=== PATIENT | female | born 1935 | race Caucasian/White ===

== ENCOUNTER 2020-03-20 18:00 | Inpatient (IN) | payer MEDICARE ==
[~2020-03-20] VITALS: Ht 152.4 cm; Wt 58.5 kg
[2020-03-20] VITALS: BP 114/68
[2020-03-21 04:00] VITALS: BP 141/70
[2020-03-21 04:39] VITALS: BP 108/60; BMI 25.2
[2020-03-21 06:42] LABS: BASOPHILS 0.3 % (0-2); EOSINOPHILS 4.7 % (0-7); HEMATOCRIT 31.1 % (36.0-48.0); HEMOGLOBIN 9.7 g/dL (12-16); IMMATURE GRANULOCYTES 0.3 % (0-5); LYMPHOCYTES 9.7 % (15-50); MCH 29.1 pg (26.0-34.0); MCHC 31.2 g/dL (31.0-37.0); MCV 93.4 fL (80.0-100.0); MONOCYTES 11.3 % (2-11); NEUTROPHILS 73.7 % (40-80); PLATELET COUNT 302 10x3/uL (130-400); RBC 3.33 10x6/uL (4.00-5.40); RDW 13.4 % (11.5-14.5); WBC 11.8 10x3/uL (4.8-10.8)
[2020-03-21 06:56] LABS: ANION GAP 12.5 mmol/L (8-16); CALCIUM 9.2 mg/dL (8.5-10.1); CARBON DIOXIDE 24.1 mmol/L (21.0-32.0); CREATININE - SERUM 1.2 mg/dL (0.6-1.3); POTASSIUM - SERUM 3.6 mmol/L (3.5-5.1)
--- NOTE | 2020-03-21 08:19 | HP ---
PATIENT: RUBINA RICHARDSON MEDICAL RECORD: [id number] ACCOUNT: [id number] LOCATION:D.MS [facility] : 35 ADMISSION DATE: 03/20/20 PCP: MUKUND BYRD MD HISTORY AND PHYSICAL EXAMINATION CHIEF COMPLAINT: Weak. HISTORY OF PRESENT ILLNESS: This is a very healthy 84-year-old female whom I have followed since 2013. She presented to my office today with gradual onset of weakness that really got worse in the last 5 days. She denies any fever. She states she may have had a chill. She had some nausea today, but no vomiting, a little diarrhea last week. No muscle aches or pains. She states she is "not very hungry." No loss of taste. She reportedly has lost about 10 pounds over the last few weeks. She has no urinary symptoms now; however, she did come to the office last week and left the UA, which did show some blood, but urine culture showed no growth. In my office today, her blood pressure was 88/42 with a heart rate of 108 and she was very weak. Her white count was 15,000 and creatinine 1.47. Urinalysis was unable to be obtained today. She only was able to give a few drops. She is admitted for weakness and dehydration. PAST MEDICAL HISTORY: Hypothyroidism and depression. PAST SURGICAL HISTORY: None. HOME MEDICATIONS: Levothyroxine 50 mcg once a day and sertraline 100 mg once a day. ALLERGIES: PENICILLIN AND SULFA. HABITS: Former smoker. No alcohol or drug use. SOCIAL HISTORY: She is a counselor and still works. She is . FAMILY HISTORY: Father at 59 of an [place]. Mother is . She due to complications of heart surgery. REVIEW OF SYSTEMS: GENERAL: She reports about a 10 pound weight loss in the last few weeks. HEENT: No particular sinus or allergy problems. RESPIRATORY: No history of emphysema, asthma, or pneumonia. CARDIAC: No history of heart trouble. GASTROINTESTINAL: No diarrhea, constipation, or heartburn. GENITOURINARY: She had hematuria last week and urine culture was negative. Unable to give urine today. MUSCULOSKELETAL: No significant joint aches or pains. NEUROLOGIC: No migraines or seizures. PSYCHIATRIC: She has some depression on sertraline. PHYSICAL EXAMINATION: VITAL SIGNS: My office blood pressure 88/42, heart rate 108, O2 sat 91% on room air. She was afebrile. GENERAL: She appeared very weak, which is very unusual for her. SKIN: Warm and dry. HEENT: TMs are clear. Nose and throat unremarkable. HISTORY AND PHYSICAL [id number] RUBINA RICHARDSON NECK: Supple. No JVD or bruit. HEART: Regular rate and rhythm without murmur. LUNGS: Clear. ABDOMEN: Soft, flat, nontender. EXTREMITIES: No edema. LABORATORY DATA: CBC with a white count of 15,450, hemoglobin 11.5, hematocrit 35.3. Basic metabolic panel: Sodium 135, potassium 3.8, chloride 98, CO2 of 23.7, BUN 20, creatinine 1.47, calcium is 9.4, and albumin was 2.8. Liver functions were all normal. TSH in my office was 0.07, free T4 1.25. ASSESSMENT: 1. Generalized weakness. 2. Acute renal insufficiency with a creatinine of 1.47. 3. Dehydration unable to urinate. 4. Tachycardic with low blood pressure. PLAN: We will admit, give IV fluids, subq Lovenox, IV Pepcid, Zofran if needed. Repeat labs in the a.m. and make further recommendations at that time. TRANSINT:[id number] Voice Confirmation ID: [id number] DOCUMENT ID: [id number] MUKUND BYRD MD at 0819 CC: [id number] DICTATION DATE: 03/20/202206 DIRECTOR INDUSTRIAL NURSING: 03/21/20 0146 ADM IN [place] [id number] [place] [address]
[2020-03-21 08:59] LABS: % SATURATION 15 % (15-55); IRON 26 ug/dl (35-150); TOTAL IRON BIND CAPACITY 165 ug/dl (260-445); UNSAT IRON BIND CAPACITY 139 ug/dl (150-375)
--- NOTE | 2020-03-21 09:01 | NUR ---
SHE IS ALERT, TALKING. SHE WALKED TO THE BATHROOM. HER FAMILY IS AT THE BEDSIDE. THE CALL LIGHT IS WITHIN REACH. SHE STATES SHE 'FEELS BETTER".
[2020-03-21 10:59] VITALS: BP 132/68
[2020-03-21 11:59] VITALS: Ht 152.4 cm; Wt 58.5 kg
[2020-03-21 13:16] VITALS: BP 131/57
[2020-03-21 16:51] LABS: BILIRUBIN NEGATIVE (NEGATIVE); GLUCOSE NEGATIVE (NEGATIVE); KETONE NEGATIVE (NEGATIVE); NITRITE NEGATIVE (NEGATIVE); UROBILINOGEN NORMAL (NORMAL)
[2020-03-21 16:55] LABS: BACTERIA MODERATE /hpf (NEGATIVE); EPITHELIAL CELLS 0-5 /hpf (0-5); WHITE CELLS - URINE >50 /hpf (NEGATIVE)
[2020-03-21 18:02] VITALS: BP 137/60
[2020-03-21 20:00] VITALS: BP 141/57
[2020-03-22] VITALS: BP 138/70
--- NOTE | 2020-03-22 02:59 | NUR ---
ASSESSED AT THE BEGINNING OF THE SHIFT. PT IS ALEART AND ORIENTED, ABLE TO VERBALIZE NEEDS. SHE IS UP TO THE BATHROOM WITH MINIMAL ASSIST AND WE HAVE HER ON ROOM AIR. HER HAS REMAINED IN THE ROOM HELPING HER WITH VARIOUS THINGS. SHE IS APPEARS TO BE ASLEEP AT THIS TIME AND NO DISTRESS NOTED.
[2020-03-22 04:00] VITALS: BP 117/52
[2020-03-22 05:28] LABS: BASOPHILS 0.1 % (0-2); EOSINOPHILS 3.8 % (0-7); HEMATOCRIT 29.4 % (36.0-48.0); HEMOGLOBIN 9.1 g/dL (12-16); IMMATURE GRANULOCYTES 0.4 % (0-5); LYMPHOCYTES 11.1 % (15-50); MCH 29.2 pg (26.0-34.0); MCV 94.2 fL (80.0-100.0); MEAN PLATELET VOLUME 9.2 fL (7.4-10.4); MONOCYTES 8.8 % (2-11); NEUTROPHILS 75.8 % (40-80); PLATELET COUNT 304 10x3/uL (130-400); RBC 3.12 10x6/uL (4.00-5.40); RDW 13.5 % (11.5-14.5); WBC 13.7 10x3/uL (4.8-10.8)
[2020-03-22 05:47] LABS: ANION GAP 13.3 mmol/L (8-16); CALCIUM 8.7 mg/dL (8.5-10.1); CARBON DIOXIDE 22.4 mmol/L (21.0-32.0); CREATININE - SERUM 1.2 mg/dL (0.6-1.3); POTASSIUM - SERUM 3.7 mmol/L (3.5-5.1)
[2020-03-22 09:46] VITALS: BP 119/44
--- NOTE | 2020-03-22 10:42 | NUR ---
PT LAYING IN BED, A&O X4. DENIES PAIN. PIV IN LEFT WRIST, PATENT, NO REDNESS OR SWELLING. O2 VIA RA. PT ABLE TO AMBULATE WITH ASSIST. EDUCATED PT ON NEED FOR STOOL SAMPLE, PROVIDED [place] HAT. EDUCATED PT ON CL FOR NEEDS. BED LOW, RAILS X2. CL IN REACH. WILL CONTINUE TO MONITOR.
[2020-03-22 12:15] VITALS: BP 136/60
[2020-03-22 16:33] VITALS: BP 126/66
[2020-03-22 20:00] VITALS: BP 128/72
[2020-03-23 00:18] VITALS: BP 138/64
[2020-03-23 04:00] VITALS: BP 143/62
[2020-03-23 09:42] VITALS: BP 149/62
--- NOTE | 2020-03-23 11:07 | NUR ---
PT ALERT X 4. BREATH SOUNDS CLEAR BILAT, IV TO RIGHT WRIST, PATENT, DRESSING CDI. PT REPORTING FEELING BETTER TODAY. AT BEDSIDE. BED LOW, CALL LIGHT IN REACH. NO OTHER NEEDS AT THIS TIME.
[2020-03-23 12:52] VITALS: BP 129/67
[2020-03-23 20:00] VITALS: BP 150/76
[2020-03-23 20:51] LABS: BILIRUBIN NEGATIVE (NEGATIVE); GLUCOSE NEGATIVE (NEGATIVE); KETONE NEGATIVE (NEGATIVE); NITRITE NEGATIVE (NEGATIVE); UROBILINOGEN NORMAL (NORMAL)
[2020-03-23 20:55] LABS: BACTERIA MODERATE /hpf (NEGATIVE); EPITHELIAL CELLS 0-5 /hpf (0-5); WHITE CELLS - URINE 25-50 /hpf (NEGATIVE)
--- NOTE | 2020-03-23 21:10 | NUR ---
WATCHING TV QUEITLY WITH NO COMPLIANTS VOICED; RESP EVEN AND UNLABORED.. IV TO RIGHT WRIST WITHOUT REDNESS OR EDEMA NOTED. CL IN REACH
[2020-03-24] VITALS: BP 158/70
[2020-03-24 04:00] VITALS: BP 147/74
[2020-03-24 07:20] LABS: BASOPHILS 0.2 % (0-2); HEMATOCRIT 27.6 % (36.0-48.0); HEMOGLOBIN 8.7 g/dL (12-16); IMMATURE GRANULOCYTES 0.6 % (0-5); LYMPHOCYTES 14.1 % (15-50); MCH 29.2 pg (26.0-34.0); MCHC 31.5 g/dL (31.0-37.0); MCV 92.6 fL (80.0-100.0); MEAN PLATELET VOLUME 9.4 fL (7.4-10.4); MONOCYTES 10.1 % (2-11); PLATELET COUNT 286 10x3/uL (130-400); RBC 2.98 10x6/uL (4.00-5.40); RDW 13.4 % (11.5-14.5); WBC 12.6 10x3/uL (4.8-10.8)
[2020-03-24 07:29] LABS: ANION GAP 10.4 mmol/L (8-16); CALCIUM 8.5 mg/dL (8.5-10.1); CARBON DIOXIDE 24.5 mmol/L (21.0-32.0)
[2020-03-24 07:32] LABS: POTASSIUM - SERUM 2.9 mmol/L (3.5-5.1)
[2020-03-24 09:07] VITALS: BP 106/74
[2020-03-24 13:48] VITALS: BP 167/73
--- NOTE | 2020-03-24 15:45 | NUR ---
PT ALERT X 4. NOT FEELING WELL TODAY YESTERDAY. POTASSIUM TREATED PER ORDERS. AT BEDSIDE. WILL CONTINUE TO MONITOR.
[2020-03-24 17:03] VITALS: BP 126/70
[2020-03-24 20:00] VITALS: BP 118/72
[2020-03-25] VITALS: BP 121/68
[2020-03-25 07:28] LABS: BASOPHILS 0.2 % (0-2); EOSINOPHILS 4.1 % (0-7); HEMOGLOBIN 9.1 g/dL (12-16); IMMATURE GRANULOCYTES 0.7 % (0-5); LYMPHOCYTES 11.1 % (15-50); MCHC 31.4 g/dL (31.0-37.0); MCV 92.4 fL (80.0-100.0); MEAN PLATELET VOLUME 9.3 fL (7.4-10.4); MONOCYTES 10.3 % (2-11); NEUTROPHILS 73.6 % (40-80); PLATELET COUNT 313 10x3/uL (130-400); RBC 3.14 10x6/uL (4.00-5.40); RDW 13.7 % (11.5-14.5); WBC 14.5 10x3/uL (4.8-10.8)
[2020-03-25 07:38] LABS: CALCIUM 8.6 mg/dL (8.5-10.1); CARBON DIOXIDE 25.1 mmol/L (21.0-32.0); POTASSIUM - SERUM 4.1 mmol/L (3.5-5.1)
--- NOTE | 2020-03-25 08:05 | NUR ---
SHE IS ALERT, TALKING. DENIES ANY PAIN. HER IS AT THE BEDSIDE. THE CALL LIGHT IS WTIHIN REACH.
[2020-03-25 08:41] VITALS: BP 142/77
--- NOTE | 2020-03-25 12:15 | MORECARE ---
CASE MANAGEMENT DISCHARGE SUMMARY PATIENT: RUBINA RICHARDSON UNIT: [id number] ADM DATE: 03/22/20 AGE: 84 : 35 SEX: F ROOM/BED: D.2204 AUTHOR: KAY BARRIENTOS PHYSICIAN: REFERRING PHYSICIAN: MUKUND BYRD MD DATE OF SERVICE: 03/25/20 Discharge Plan Patient Name: RUBINA RICHARDSON [facility] [facility] 1935 Planned Disposition: Home Anticipated Discharge Date: Discharge Date: Expected LOS: Initial Reviewer: [email or web address] Initial Review Date: 03/20/2020 Generated: 03/25/20 1:14 pm DCPIA - Discharge Planning Initial Assessment Updated by [id number]: Kisha Rhodes on 03/25/20 12:14 pm * Is the patient Alert and Oriented? Yes * How many steps to enter\exit or inside your home? * PCP [facility] * Pharmacy [facility] * Preadmission Environment Home with Family * ADLs Independent * Equipment None * List name and contact numbers for known caregivers / representatives who currently or will assist patient after discharge: INDERJIT (SPOUSE) * Verbal permission to speak to the caregivers and representatives has been obtained from the patient. Yes * Community resources currently utilized None * Additional services required to return to the preadmission environment? No * Can the patient safely return to the preadmission environment? Yes * Has this patient been hospitalized within the prior 30 days at any hospital? No Patient Name: RUBINA RICHARDSON Page [id number] at 1215 All edits/amendments must be made on the electronic document DICTATION DATE: 03/25/20 1215 EMERGENCY MEDICINE SPECIALIST: SAM 03/25/20 1215 RPT#: [id number] DC DATE: STATUS: ADM IN [facility] [place] [address] END OF REPORT
--- NOTE | 2020-03-25 12:22 | MORECARE ---
CASE MANAGEMENT DISCHARGE SUMMARY PATIENT: RUBINA RICHARDSON UNIT: [id number] ADM DATE: 03/22/20 AGE: 84 : 35 SEX: F ROOM/BED: D.2204 AUTHOR: FLOYD,DOC PHYSICIAN: REFERRING PHYSICIAN: MUKUND BYRD MD DATE OF SERVICE: 03/25/20 Discharge Plan Patient Name: RUBINA RICHARDSON Facility: [facility]:[place] : 1935 Planned Disposition: Home Anticipated Discharge Date: Discharge Date: Expected LOS: Initial Reviewer: [email or web address] Initial Review Date: 03/20/2020 Generated: 03/25/20 1:21 pm Comments DCP- Discharge Planning Updated by [email or web address]: Kisha Rhodes on 03/25/20 11:[address] Patient Name: RUBINA RICHARDSON Admission Status: Elective Accout number: [id number] Admission Date: 03-22-2020 : 1935 Admission Diagnosis: Attending: MUKUND BYRD Current LOS: 3 Anticipated DC Date: Planned Disposition: Home Primary Insurance: MEDICARE A & B Discharge Planning Comments: CM met with patient to complete initial dc planning assessment. CM educated patient on the CM role and verbal consent given by patient to complete assessment. Patient lives at home with her spouse where she is independent with her care. At discharge patient plans to return home and feels this is a safe discharge. CM discussed availability of home health, rehab services, and medical equipment. Sh did not think that she needed anything and if she did she would call Dr Byrd at his office. Patient denied known discharge needs at this time. Her is at bedside and will be her services delivery driver home. IMM served and explained. CM will continue to follow and will assist as needed with dc plans/needs. Electrical Construction Project Manager: Kisha Rhodes DCPIA - Discharge Planning Initial Assessment Updated by [email or web address]: Kisha Rhodes on 03/25/20 12:14 pm * Is the patient Alert and Oriented? Yes * How many steps to enter\exit or inside your home? * PCP ROCHELLE * Pharm[facility] * Preadmission Environment Home with Family * ADLs Independent * Equipment None * List name and contact numbers for known caregivers / representatives who currently or will assist patient after discharge: INDERJIT (SPOUSE) * Verbal permission to speak to the caregivers and representatives has been obtained from the patient. Yes * Community resources currently utilized None * Additional services required to return to the preadmission environment? No * Can the patient safely return to the preadmission environment? Yes * Has this patient been hospitalized within the prior 30 days at any hospital? No Coverage Notice Reviewer: [email or web address] Alphonso Rhodes Notice Issued Date-Time: 03/25/2020 12:00 Notice Type: IM Discharge Notice Notice Delivered To: Patient Relationship to Patient: Boat Joiner Helper Name: Delivery Method: HAND - Hand Delivered Chrissy Days: Prior Verbal Notification: Recipient Understood Notice: Yes Recipient Signature: Yes Med Rec Note Co-signed by Attending: Coverage Notice Comment: IMM explained, signed, copy given and original placed in medical record. Last DP export: 03/25/20 11:15 am Patient Name: RUBINA RICHARDSON Page [phone] at 1222 All edits/amendments must be made on the electronic document DICTATION DATE: 03/25/20 1221 ENVIRONMENTAL STUDIES PROFESSOR: SAM 03/25/20 1221 RPT#: [id number] DC DATE: STATUS: ADM IN [facility] [address] [place] [address] END OF REPORT
--- NOTE | 2020-03-25 14:27 | NUR ---
IV REMOVED, PAPERWORK GONE OVER WITH, PATIENT AND HER . TAKEN OUT TO THE ER VIA WHEELCHAIR.
--- NOTE | 2020-03-26 08:59 | MORECARE ---
CASE MANAGEMENT DISCHARGE SUMMARY PATIENT: RUBINA RICHARDSON UNIT: [id number] ADM DATE: 03/22/20 AGE: 84 : 35 SEX: F ROOM/BED: D.2204 AUTHOR: FLOYD,DOC PHYSICIAN: REFERRING PHYSICIAN: MUKUND BYRD MD DATE OF SERVICE: 03/26/20 Discharge Plan Patient Name: RUBINA RICHARDSON Facility: [facility]:[place] : 1935 Planned Disposition: Home Anticipated Discharge Date: Discharge Date: 03/25/2020 Expected LOS: Initial Reviewer: [email or web address] Initial Review Date: 03/20/2020 Generated: 03/26/20 9:58 am Comments DCP- Discharge Planning Updated by [id number]: Kisha Rhodes on 03/25/20 11:[address] Patient Name: RUBINA RICHARDSON Admission Status: Elective Accout number: [id number] Admission Date: 03-22-2020 : 1935 Admission Diagnosis: Attending: MUKUND BYRD Current LOS: 3 Anticipated DC Date: Planned Disposition: Home Primary Insurance: MEDICARE A & B Discharge Planning Comments: CM met with patient to complete initial dc planning assessment. CM educated patient on the CM role and verbal consent given by patient to complete assessment. Patient lives at home with her spouse where she is independent with her care. At discharge patient plans to return home and feels this is a safe discharge. CM discussed availability of home health, rehab services, and medical equipment. Sh did not think that she needed anything and if she did she would call Dr Byrd at his office. Patient denied known discharge needs at this time. Her is at bedside and will be her stage driver home. IMM served and explained. CM will continue to follow and will assist as needed with dc plans/needs. Button Tufting Machine Operator: Kisha Rhodes DCPIA - Discharge Planning Initial Assessment Updated by [id number]: Kisha Rhodes on 03/25/20 12:14 pm * Is the patient Alert and Oriented? Yes * How many steps to enter\exit or inside your home? * PCP [facility]HELLE * Pharm[facility] * Preadmission Environment Home with Family * ADLs Independent * Equipment None * List name and contact numbers for known caregivers / representatives who currently or will assist patient after discharge: INDERJIT (SPOUSE) * Verbal permission to speak to the caregivers and representatives has been obtained from the patient. Yes * Community resources currently utilized None * Additional services required to return to the preadmission environment? No * Can the patient safely return to the preadmission environment? Yes * Has this patient been hospitalized within the prior 30 days at any hospital? No Coverage Notice Reviewer: [id number] Alphonso Rhodes Notice Issued Date-Time: 03/25/2020 12:00 Notice Type: IM Discharge Notice Notice Delivered To: Patient Relationship to Patient: Hot Roll Inspector Name: Delivery Method: HAND - Hand Delivered Chrissy Days: Prior Verbal Notification: Recipient Understood Notice: Yes Recipient Signature: Yes Med Rec Note Co-signed by Attending: Coverage Notice Comment: IMM explained, signed, copy given and original placed in medical record. Last DP export: 03/25/20 11:22 am Patient Name: RUBINA RICHARDSON Page [id number] at 0859 All edits/amendments must be made on the electronic document DICTATION DATE: 03/26/2059 PRODUCTION ENGINEER: SMA 03/26/2059 RPT#: [id number] DC DATE:03/25/20 STATUS: DIS IN [facility] [address] [place] [address] END OF REPORT
== END 2020-03-25 14:28 | disposition home or self-care (01) | DRG 683 ==
LOC: D.MS 18:00 → OBSVTIME 18:07 → D.MS 19:30
PROVIDERS: Family Medicine; ADMIT Family Medicine; ATTEND Family Medicine
DX: N17.9 Acute kidney failure, unspecified (principal); N39.0 Urinary tract infection, site not specified; E86.0 Dehydration; D64.9 Anemia, unspecified; R00.0 Tachycardia, unspecified; R53.1 Weakness

== ENCOUNTER 2020-03-29 13:40 | Inpatient (IN) | payer MEDICARE ==
[~2020-03-29] VITALS: Ht 152.4 cm; Wt 58.6 kg
[2020-03-29] MEDS ORDERED: ZOLOFT100 MG PO (14:17)
[2020-03-29] MEDS ORDERED: SYNTHROID50 MCG PO (14:17)
[2020-03-29 14:23] VITALS: BP 168/78; Ht 152.4 cm; Wt 58.6 kg
[2020-03-29 16:20] LABS: BILIRUBIN NEGATIVE (NEGATIVE); GLUCOSE NEGATIVE (NEGATIVE); KETONE MODERATE mg/dL (NEGATIVE); NITRITE NEGATIVE (NEGATIVE); UROBILINOGEN NORMAL (NORMAL)
[2020-03-29 16:28] LABS: EPITHELIAL CELLS 0-5 /hpf (0-5); RED CELLS - URINE >50 /hpf (0-5); WHITE CELLS - URINE 25-50 /hpf (NEGATIVE)
[2020-03-29 16:40] LABS: BACTERIA MODERATE /hpf (NEGATIVE)
[2020-03-29 16:57] VITALS: BP 150/85
[2020-03-29 18:46] LABS: BASOPHILS 0.1 % (0-2); EOSINOPHILS 0.8 % (0-7); HEMATOCRIT 31.7 % (36.0-48.0); IMMATURE GRANULOCYTES 0.4 % (0-5); LYMPHOCYTES 7.8 % (15-50); MCH 29.4 pg (26.0-34.0); MCHC 31.5 g/dL (31.0-37.0); MCV 93.2 fL (80.0-100.0); MONOCYTES 8.8 % (2-11); NEUTROPHILS 82.1 % (40-80); PLATELET COUNT 392 10x3/uL (130-400); RDW 13.8 % (11.5-14.5); WBC 19.9 10x3/uL (4.8-10.8)
[2020-03-29 19:00] LABS: ALBUMIN 2.3 g/dL (3.4-5.0); ANION GAP 13.2 mmol/L (8-16); BILIRUBIN - TOTAL 0.47 mg/dL (0.2-1.3); CALCIUM 8.5 mg/dL (8.5-10.1); CARBON DIOXIDE 25.5 mmol/L (21.0-32.0); CREATININE - SERUM 1.1 mg/dL (0.6-1.3); POTASSIUM - SERUM 3.7 mmol/L (3.5-5.1); PROTEIN - SERUM 7.3 g/dL (6.4-8.2)
--- NOTE | 2020-03-29 21:30 | NUR ---
LYING QUEITLY WITH NO DISTRESSS NOTED. CT RESULTS CALLED TO DR BYRD. ORDERS RECEIVED. IV NS STARTED TO LEFT WRIST AT 75CC/HR. TOLERATED WELL CL IN REACH
[2020-03-29 22:06] VITALS: BP 147/72
[2020-03-30] VITALS: BP 144/71
[2020-03-30 04:00] VITALS: BP 162/76
--- NOTE | 2020-03-30 04:39 | NUR ---
I have reviewed this patient and I concur with the Shift Assessment completed by the Licensed Practical Nurse today this shift.
--- NOTE | 2020-03-30 07:20 | NUR ---
A&O RESTING IN BED WITH EYES OPEN. C/O PAIN, 05/02. GAVE TYLENOL FOR PAIN PER MD ORDERS. C/O NAUSEA, GAVE ZOFRAN PER MD ORDERS. UP WITH MINIMAL ASSIST. IV TO LEFT WRIST, NS INFUSING @ 75ML/HR. SITE PATENT WITHOUT REDNESS OR SWELLING. ASSISTED PATIENT UP TO RESTROOM, SLIGHTLY BLOODY URINE. DENIES ANY NEEDS AT THIS TIME. CALL LIGHT IN REACH. WILL CONTINUE TO MONITOR.
[2020-03-30 07:31] LABS: BASOPHILS 0.2 % (0-2); EOSINOPHILS 1.4 % (0-7); HEMATOCRIT 31.3 % (36.0-48.0); HEMOGLOBIN 9.7 g/dL (12-16); IMMATURE GRANULOCYTES 0.5 % (0-5); LYMPHOCYTES 6.2 % (15-50); MCH 29.1 pg (26.0-34.0); MEAN PLATELET VOLUME 8.9 fL (7.4-10.4); MONOCYTES 9.3 % (2-11); NEUTROPHILS 82.4 % (40-80); PLATELET COUNT 387 10x3/uL (130-400); RBC 3.33 10x6/uL (4.00-5.40); RDW 13.9 % (11.5-14.5); WBC 17.5 10x3/uL (4.8-10.8)
[2020-03-30 07:41] LABS: ANION GAP 13.6 mmol/L (8-16); CALCIUM 8.4 mg/dL (8.5-10.1); CARBON DIOXIDE 27.1 mmol/L (21.0-32.0); POTASSIUM - SERUM 3.7 mmol/L (3.5-5.1)
--- NOTE | 2020-03-30 08:00 | NUR ---
PATIENT IS LYING IN BED,WITHOUT DISTRESS.FAMILY AT BEDSIDE.
[2020-03-30 09:49] VITALS: BP 170/84
--- NOTE | 2020-03-30 10:17 | HP ---
PATIENT: RUBINA RICHARDSON MEDICAL RECORD: [id number] ACCOUNT: [id number] LOCATION:D.MS [address] : [birth year] ADMISSION DATE: 03/29/20 PCP: MUKUND BYRD MD HISTORY AND PHYSICAL EXAMINATION ADMISSION HISTORY AND PHYSICAL DATE OF ADMISSION: 03/29/2020. CHIEF COMPLAINT: Abdominal pain and hematuria. HISTORY OF PRESENT ILLNESS: This 84-year-old female who I have followed for the last 6 years, came in today feeling increased weakness with lower abdominal pain. She was just admitted into the hospital with acute renal insufficiency, dehydration, and low blood pressure and weakness. She was discharged on 03/25/2020. She states she felt good for the next 2 days and started feeling weak and bad and having increased pain. No fever or chills. She is directly admitted to [facility] for further workup. PAST MEDICAL HISTORY: Hypothyroidism, depression. PAST SURGICAL HISTORY: None. HOME MEDICATIONS: Levothyroxine 50 mcg once a day, sertraline 100 mg once a day. HABITS: Former smoker, no alcohol or drugs. 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 She is . FAMILY HISTORY: Father at 59 of an [place]. Mother due to complications of heart surgery. REVIEW OF SYSTEMS: GENERAL: She states she has had about a 10-pound weight loss over the last several weeks. HEENT: No significant sinus or allergy problems. RESPIRATORY: No history of emphysema, asthma or pneumonia. CARDIAC: No history of heart trouble. GASTROINTESTINAL: No diarrhea, constipation or heartburn. GENITOURINARY: Hematuria in the last week or two. Urine culture was negative. MUSCULOSKELETAL: No significant joint aches and pains. NEUROLOGIC: No migraines or seizures. PSYCHIATRIC: She has had some depression and is on sertraline. PHYSICAL EXAMINATION: VITAL SIGNS: Temperature 98.8, pulse 93, respirations 12, blood pressure 147/72, O2 sat 92%. GENERAL: Generally, she appears weak and tired. HEENT: Unremarkable. NECK: Supple. HEART: Regular rate and rhythm. LUNGS: Clear. ABDOMEN: With no bloating. There is some generalized tenderness in the lower HISTORY AND PHYSICAL [id number] RUBINA RICHARDSON abdomen. No guarding, no rebound, no mass. PELVIC: Not done. EXTREMITIES: No edema. LABORATORY DATA: CBC with a white count of 19,900, hemoglobin 10, hematocrit 31, MCV is normal. Sodium 130, potassium 3.7, chloride 95, CO2 25.5, BUN 15, creatinine 1.1, glucose 85, calcium 8.5. Liver enzymes are normal. Urine is brown and turbid, 3+ protein, moderate ketones, 2+ blood, 2+ leukocyte esterase, greater than 50 red blood cells, 25-50 white blood cells, 0-5 epithelial cells, moderate bacteria. CT abdomen and pelvis shows irregular enhancing structure in the mid to inferior aspect of the left kidney, measuring up to 6.7 cm in transverse diameter. The left renal parenchyma demonstrates delayed and diminished enhancement in comparison to the right. This structure may be due to a renal abscess, renal or transitional cell cancer, or focus of infarction. There is aortic and pelvic atherosclerosis. ASSESSMENT: 1. Abdominal pain. 2. Renal mass. 3. Urinary tract infection. PLAN: We have no urology coverage here. We will make sure that if Dr. Banks has come over some weeks, if not I have already talked to the patient and her and if beds were available at [facility], we will transfer over there for urologic consultation for her renal mass. We will give her IV fluids. We will start antibiotics for what appears to be a urinary tract infection. TRANSINT:[id number] Voice Confirmation ID: [id number] DOCUMENT ID: [id number] MUKUND BYRD MD at 1017 CC: [id number] DICTATION DATE: 03/30/20 0033 HOSE INSPECTOR: 03/30/20 0511 ADM IN [place] [id number] [place] [address]
[2020-03-30 13:58] VITALS: BP 126/63
[2020-03-30 18:04] VITALS: BP 140/71
--- NOTE | 2020-03-30 19:15 | NUR ---
ALERT AND ORIENTED SITTING UP IN BED WHEN ENTERING THE ROOM. AT BEDSIDE. PATIENT DENIES PAIN AT THIS TIME. ASSESSMENT COMPLETE. LEFT WRIST IV THAT IS PATENT AND IFUSING NS PER ORDER. PATIENT HAS CALL LIGHT AND VERBALIZES UNDERSTANDING OF USING WHEN IN NEED OF ASSISTANCE. DENIES FURTHER NEEDS AT THIS TIME. CALL LIGHT CLOSE. CPOC.
--- NOTE | 2020-03-30 20:30 | NUR ---
ANSWERED PATIENT CALL LIGHT. ASSISTED TO BATHROOM. PATIENT REQUIRED MINIMAL STAND BY ASSIST. URINE REMAINS RUST COLORED. RETURNED TO BED SAFELY. DENIES FUTHER NEEDS AT THIS TIME. CALL LIGHT CLOSE. REMAINS AT BEDSIDE. CPOC.
[2020-03-30 20:58] VITALS: BP 161/76
[2020-03-31 00:44] VITALS: BP 154/82
[2020-03-31 06:49] LABS: BASOPHILS 0.2 % (0-2); EOSINOPHILS 2.2 % (0-7); HEMATOCRIT 28.8 % (36.0-48.0); IMMATURE GRANULOCYTES 0.3 % (0-5); MCH 29.4 pg (26.0-34.0); MCHC 31.3 g/dL (31.0-37.0); MCV 94.1 fL (80.0-100.0); MEAN PLATELET VOLUME 8.9 fL (7.4-10.4); MONOCYTES 9.9 % (2-11); NEUTROPHILS 79.4 % (40-80); PLATELET COUNT 369 10x3/uL (130-400); RBC 3.06 10x6/uL (4.00-5.40); RDW 13.8 % (11.5-14.5); WBC 16.7 10x3/uL (4.8-10.8)
[2020-03-31 07:02] LABS: ANION GAP 8.7 mmol/L (8-16); CALCIUM 8.2 mg/dL (8.5-10.1); CARBON DIOXIDE 26.8 mmol/L (21.0-32.0); CREATININE - SERUM 1.1 mg/dL (0.6-1.3); POTASSIUM - SERUM 3.5 mmol/L (3.5-5.1)
--- NOTE | 2020-03-31 07:10 | NUR ---
RECEIVED REPORT, ASSUMED CARE, SLEEPING, BED LOWEST POSITION, BREATHING EVEN UNLABORED, CALL LIGHT IN REACH, WILL CONTINUE POC
[2020-03-31 08:43] VITALS: BP 152/85
--- NOTE | 2020-03-31 15:20 | NUR ---
DC PAPERS AND INSTRUCTIONS GIVENT TO PATIENT AND , QUESTIONS ANSWERED, IV REMOVED TIP INTACT, DC IN WC WITH BELONGINGS
== END 2020-03-31 15:34 | disposition home or self-care (01) | DRG 690 ==
LOC: D.MS 13:40
PROVIDERS: ADMIT Family Medicine; ATTEND Family Medicine
DX: N39.0 Urinary tract infection, site not specified (principal); R31.9 Hematuria, unspecified; N28.89 Other specified disorders of kidney and ureter; R10.9 Unspecified abdominal pain